=== PATIENT | female | born 1990 | race Caucasian/White ===

== ENCOUNTER → 2016-05-28 | Outpatient (CLI) | payer OTHER ==
[~2016-05-28] MED LIST: ABILIFY2 MG PO; AMBIEN10 MG PO; AMBIEN5 MG PO; AMOXICILLIN500 M2 PO; AMOXICILLIN500 MG PO; ATARAX25 MG PO; ATIVAN1 MG PO; BACTRIM DS 8001 TA1 PO; BENADRYL25 MG PO; BUSPAR5 MG PO; CIPRO250 MG PO; CLARITIN10 MG PO; CLONAZEPAM0.5 MG PO; COLACE-T100 MG PO; DICLEGIS DR 101 EACH PO; HYDROCODONE BIT1 T11 PO; HYDROXYZINE PAM50 MG PO; IRON CHELATED325 MG PO; KEFLEX500 MG PO; LABETALOL100 MG PO; LATUDA60 MG PO; LOMOTIL 0.025 M1 TA1 PO; MACROBID100 M1 PO; MEDROL DOSEPAK4 MG PO; METHERGINE0.2 MG PO; MOTRIN800 MG PO; Motrin,Rufen800 MG PO; NAPROSYN500 MG PO; NORTRIPTYLINE H50 M1 PO; NUED1CAP PO; NYSTATIN CREAM15 GM T; PERCOCET 325 MG1 TA2 PO; PHENERGAN W/ DE30 ML PO; PHENERGAN W/DM120 ML PO; PNV-SELECT1 TAB PO; PREDNICOT10 MG PO; PREDNICOT20 MG PO; PRENATAL1 TA1 PO; PRENATAL1 TA3 PO; PROAIR HFA0.09 MG/AC INH; PROAIR HFA8.5 GM IH; PROTONIX40 MG PO; PYRIDIUM200 MG PO; RISPERDAL0.25 MG PO; ROBITUSSIN COU118 M1 PO; SEPTRA DS 800 M1 TAB PO; TOPAMAX25 M1 PO; TOPICORT0.25% TP; TRAMADOL HCL50 MG PO; TRIMOX500 MG PO; TYLENOL325 M1 PO; VIBRAMYCIN100 MG PO; VICO10300 PO; VISTARIL25 M1 PO; ZITHROMAX Z PA250 MG PO; ZITHROMAX250 MG PO; ZOFRAN ODT4 MG PO; ZOFRAN ODT4 MG SL; ZOLOFT25 MG PO; ZOLPIDEM10 M1 PO
== END | disposition home or self-care (01) ==
LOC: LAB 16:57
DX: R53.83 Other fatigue (principal)

== ENCOUNTER 2016-06-09 11:35 | Emergency (ER) | payer OTHER ==
[~2016-06-09] VITALS: Ht 165.1 cm; Wt 90.7 kg
[2016-06-09 13:08] LABS: BILIRUBIN NEGATIVE (NEGATIVE); BLOOD TRACE-LYSED (NEGATIVE); COLOR YELLOW (YELLOW); GLUCOSE NEGATIVE (NEGATIVE); KETONE NEGATIVE (NEGATIVE); LEUKO ESTERASE TRACE (NEGATIVE); NITRITE NEGATIVE (NEGATIVE); PROTEIN TRACE (NEGATIVE); UROBILINOGEN 0.2 E.U./dl (0.2-1.0)
[2016-06-09 13:17] LABS: BACTERIA TRACE; CLARITY CLOUDY (CLEAR)
[2016-06-09 13:18] LABS: TRIP PHOS CRYSTALS 1+; WBC 16-20 wbc/hpf (0-5)
[2016-06-09 13:19] LABS: URINE REFLEX COMMENT YES (NO)
[2016-06-09] MEDS ORDERED: PYRIDIUM100 MG PO (13:29)
[2016-06-09] MEDS ORDERED: BACTRIM DS 8001 TA1 PO (13:29)
== END 2016-06-09 13:42 | disposition home or self-care (01) ==
LOC: ED 11:35
PROVIDERS: Nurse Practitioner Family
DX: N30.01 Acute cystitis with hematuria (principal); F17.200 Nicotine dependence, unspecified, uncomplicated; Z90.49 Acquired absence of other specified parts of digestive tract; Z79.899 Other long term (current) drug therapy; Z88.8 Allergy status to other drugs, medicaments and biological substances

== ENCOUNTER → 2016-11-06 | Outpatient (CLI) | payer OTHER ==
[~2016-11-06] MED LIST changes: +PYRIDIUM100 MG PO
[2016-11-06 17:53] LABS: BASO # 0.1 10*3/uL (0.0-0.1); EOS # 0.6 10*3/uL (0.0-0.4); EOS % 4.4 % (1.0-4.0); HEMATOCRIT 37.8 % (37.0-47.0); HEMOGLOBIN 12.6 g/dl (12.0-16.0); LYMPH # 3.2 10*3/uL (1.3-4.4); MEAN CELL VOLUME 81.5 fl (81.0-99.0); MEAN CORPUSCULAR HGB 27.2 pg (27.0-31.0); MEAN CORPUSCULAR HGB CONC 33.3 g/dl (33.0-37.0); MEAN PLATELET VOLUME 10.2 fl (9.6-12.3); MONO # 1.1 10*3/uL (0.1-1.0); MONO % 8.8 % (3.0-9.0); NEUT # 7.4 10*3/uL (2.3-7.9); NEUT % 59.5 % (47.0-73.0); NUCLEATED RED BLOOD CELL 0.2 % (0.0-0.0); PLATELET COUNT AUTOMATED 339 10*3/uL (130-400); RED BLOOD COUNT 4.64 10*6/uL (4.10-5.10); RED CELL DISTRI WIDTH 14.7 % (0-14.5); WHITE BLOOD COUNT 12.4 10*3/uL (4.8-10.8)
[2016-11-06 18:07] LABS: ALBUMIN 3.5 gm/dl (3.1-4.5); ALKALINE PHOSPHATASE 94 U/L (45-117); BUN 7 mg/dl (7-24); CHLORIDE 106 mmol/L (98-107); CREATININE 0.65 mg/dL (0.55-1.02); POTASSIUM 3.7 mmol/L (3.5-5.1); SGOT/AST 11 IU/L (3-35); SGPT/ALT 14 U/L (12-78); SODIUM 140 mmol/L (136-145); TOTAL PROTEIN 7.5 gm/dL (6.4-8.2)
[2016-11-07 08:30] LABS: THYROID STIM HORMONE (HS) 0.814 uIU/ml (0.358-4.75)
[2016-11-07 08:43] LABS: B-hCG (QUALITATIVE) BORDERLINE (NEGATIVE)
== END | disposition home or self-care (01) ==
LOC: LAB 17:29
PROVIDERS: Nurse Practitioner Women's Health
DX: F31.81 Bipolar II disorder (principal)

== ENCOUNTER 2016-12-31 13:34 | Emergency (ER) | payer OTHER ==
[~2016-12-31] VITALS: Ht 165.1 cm; Wt 81.6 kg
[2016-12-31 14:10] LABS: BASO # 0.1 10*3/uL (0.0-0.1); BASO % 0.6 % (0.0-1.0); EOS # 0.4 10*3/uL (0.0-0.4); EOS % 3.2 % (1.0-4.0); HEMOGLOBIN 13.8 g/dl (12.0-16.0); LYMPH # 2.6 10*3/uL (1.3-4.4); LYMPH % 23.3 % (27.0-41.0); MEAN CELL VOLUME 80.1 fl (81.0-99.0); MEAN CORPUSCULAR HGB CONC 33.7 g/dl (33.0-37.0); MEAN PLATELET VOLUME 10.2 fl (9.6-12.3); MONO # 0.8 10*3/uL (0.1-1.0); MONO % 6.8 % (3.0-9.0); NEUT # 7.3 10*3/uL (2.3-7.9); NEUT % 65.7 % (47.0-73.0); PLATELET COUNT AUTOMATED 317 10*3/uL (130-400); RED BLOOD COUNT 5.12 10*6/uL (4.10-5.10); RED CELL DISTRI WIDTH 13.6 % (0-14.5); WHITE BLOOD COUNT 11.1 10*3/uL (4.8-10.8)
[2016-12-31 14:20] LABS: BILIRUBIN NEGATIVE (NEGATIVE); BLOOD 3+ (NEGATIVE); CLARITY SL CLOUDY (CLEAR); COLOR YELLOW (YELLOW); GLUCOSE NEGATIVE (NEGATIVE); KETONE NEGATIVE (NEGATIVE); LEUKO ESTERASE TRACE (NEGATIVE); NITRITE NEGATIVE (NEGATIVE); PH 6.5 (5.0-9.0); UROBILINOGEN 0.2 E.U./dl (0.2-1.0)
[2016-12-31 14:22] LABS: BUN 5 mg/dl (7-24); CHLORIDE 103 mmol/L (98-107); CREATININE 0.54 mg/dL (0.55-1.02); SODIUM 138 mmol/L (136-145)
[2016-12-31 14:27] LABS: BACTERIA 2+; EPITHELIAL CELLS 31-40
[2016-12-31 14:29] LABS: RBC 31-40 rbc/hpf (0-2)
[2016-12-31] MEDS ORDERED: OMNICEF300 MG PO (14:34)
== END 2016-12-31 14:43 | disposition home or self-care (01) ==
LOC: ED 13:34
PROVIDERS: Emergency Medicine
DX: O23.41 Unspecified infection of urinary tract in pregnancy, first trimester (principal); O99.331 Smoking (tobacco) complicating pregnancy, first trimester; Z3A.12 12 weeks gestation of pregnancy; Z88.5 Allergy status to narcotic agent; Z88.8 Allergy status to other drugs, medicaments and biological substances; Z79.899 Other long term (current) drug therapy

== ENCOUNTER 2017-08-14 14:19 | Emergency (ER) | payer OTHER ==
[~2017-08-14] VITALS: Ht 165.1 cm; Wt 83.0 kg
[~2017-08-14 14:19] MED LIST changes: +OMNICEF300 MG PO
[2017-08-14] MEDS ORDERED: IBUPROFEN600 MG PO (16:22)
== END 2017-08-14 16:31 | disposition home or self-care (01) ==
LOC: ED 14:19
DX: I80.8 Phlebitis and thrombophlebitis of other sites (principal); M25.531 Pain in right wrist; Z90.49 Acquired absence of other specified parts of digestive tract; Z88.6 Allergy status to analgesic agent; Z88.8 Allergy status to other drugs, medicaments and biological substances

== ENCOUNTER → 2017-09-25 | Outpatient (CLI) | payer OTHER ==
[~2017-09-25] MED LIST changes: +IBUPROFEN600 MG PO
[2017-09-25 11:54] LABS: BASO # 0.1 10*3/uL (0.0-0.1); BASO % 1.1 % (0.0-1.0); EOS # 0.4 10*3/uL (0.0-0.4); EOS % 4.2 % (1.0-4.0); HEMATOCRIT 39.3 % (37.0-47.0); HEMOGLOBIN 12.2 g/dl (12.0-16.0); LYMPH # 2.9 10*3/uL (1.3-4.4); LYMPH % 33.6 % (27.0-41.0); MEAN CORPUSCULAR HGB 25.2 pg (27.0-31.0); MEAN PLATELET VOLUME 10.6 fl (9.6-12.3); MONO # 0.7 10*3/uL (0.1-1.0); MONO % 8.7 % (3.0-9.0); NEUT # 4.5 10*3/uL (2.3-7.9); NEUT % 52.2 % (47.0-73.0); PLATELET COUNT AUTOMATED 310 10*3/uL (130-400); RED BLOOD COUNT 4.85 10*6/uL (4.10-5.10); RED CELL DISTRI WIDTH 14.4 % (0-14.5); WHITE BLOOD COUNT 8.6 10*3/uL (4.8-10.8)
[2017-09-25 12:21] LABS: BUN 9 mg/dl (7-24); CHLORIDE 108 mmol/L (98-107); CREATININE 0.76 mg/dL (0.55-1.02); POTASSIUM 4.1 mmol/L (3.5-5.1); SODIUM 140 mmol/L (136-145)
== END | disposition home or self-care (01) ==
LOC: LAB 11:34
DX: Z01.818 Encounter for other preprocedural examination (principal); F17.200 Nicotine dependence, unspecified, uncomplicated; F12.10 Cannabis abuse, uncomplicated

== ENCOUNTER 2017-10-16 12:24 | Inpatient (IN) | payer OTHER ==
[~2017-10-16] VITALS: Ht 165.1 cm; Wt 81.2 kg
--- NOTE | ~2017-10-16 | EKG ---
[place], [place] ELECTROCARDIOGRAM REPORT NAME: TING RAMIREZ UNIT #: [id number] ROOM: 404 DOCTOR: MARELY DRAFT REPORT BIRTHDATE: [birth year] [facility] Test Date: 2017-10-18 Test Time: 13:52:58 Pat Name: TING RAMIREZ Department: Room: [facility] 1 Gender: F [employer] Drawer: SS RESP : 1990 Requested By: APRYL CHRISTIE Order Number: [id number] Reading MD: Measurements Intervals [place] Rate: 68 P: 54 VT: 154 QRS: 82 QRSD: 92 T: 57 QT: 404 QTc: 430 Interpretive Statements Sinus rhythm Baseline wander in lead(s) I,III,aVL,V1,V2,V4,V5,V6 Compared to ECG 10/16/2017 15:11:49 Sinus arrhythmia no longer present CM:EKGRPT:ELECTROCARDIOGRAM REPORT 1352 1055 APRYL STEEN DRAFT REPORT APRYL CHRISTIE DO
--- NOTE | ~2017-10-16 | EKG ---
[place], [place] ELECTROCARDIOGRAM REPORT NAME: TING RAMIREZ UNIT #: [id number] ROOM: 404 DOCTOR: MARELY DRAFT REPORT BIRTHDATE: [birth year] [facility] Test Date: 2017-10-16 Test Time: 15:11:49 Pat Name: TING RAMIREZ Department: Room: 404 Gender: F Lead Case Manager: Macy Lainez : 1990 Requested By: ERASMO IBARRA Order Number: [id number] Reading MD: Jose Rausch MD Measurements Intervals [place] Rate: 59 P: 45 ME: 160 QRS: 59 QRSD: 89 T: 30 QT: 393 QTc: 390 Interpretive Statements Sinus rhythm with sinus arrhythmia Electronically Signed On 10-16-2017 14:13:57 PDT by Jose Rausch MD CM:EKGRPT:ELECTROCARDIOGRAM REPORT 1511 [id number] ERASMO STEEN DRAFT REPORT ERASMO IBARRA DO
[2017-10-16 12:28] VITALS: BP 132/70
[2017-10-16 13:09] LABS: BILIRUBIN NEGATIVE (NEGATIVE); BLOOD 3+ (NEGATIVE); CLARITY SL CLOUDY (CLEAR); COLOR YELLOW (YELLOW); GLUCOSE NEGATIVE (NEGATIVE); KETONE NEGATIVE (NEGATIVE); LEUKO ESTERASE NEGATIVE (NEGATIVE); NITRITE NEGATIVE (NEGATIVE); SPECIFIC GRAVITY <= 1.005 (1.005-1.030)
[2017-10-16 13:10] LABS: BASO % 0.5 % (0.0-1.0); EOS # 0.3 10*3/uL (0.0-0.4); EOS % 4.1 % (1.0-4.0); HEMATOCRIT 40.1 % (37.0-47.0); HEMOGLOBIN 12.5 g/dl (12.0-16.0); LYMPH # 2.2 10*3/uL (1.3-4.4); LYMPH % 27.1 % (27.0-41.0); MEAN CELL VOLUME 79.4 fl (81.0-99.0); MEAN CORPUSCULAR HGB 24.8 pg (27.0-31.0); MEAN CORPUSCULAR HGB CONC 31.2 g/dl (33.0-37.0); MEAN PLATELET VOLUME 10.9 fl (9.6-12.3); MONO # 0.8 10*3/uL (0.1-1.0); MONO % 9.9 % (3.0-9.0); NEUT # 4.8 10*3/uL (2.3-7.9); PLATELET COUNT AUTOMATED 322 10*3/uL (130-400); RED BLOOD COUNT 5.05 10*6/uL (4.10-5.10); RED CELL DISTRI WIDTH 14.6 % (0-14.5); WHITE BLOOD COUNT 8.3 10*3/uL (4.8-10.8)
[2017-10-16 13:24] LABS: ALBUMIN 3.6 gm/dl (3.1-4.5); ALKALINE PHOSPHATASE 224 U/L (45-117); BUN 5 mg/dl (7-24); CHLORIDE 107 mmol/L (98-107); CREATININE 0.66 mg/dL (0.55-1.02); POTASSIUM 3.6 mmol/L (3.5-5.1); SGOT/AST 578 IU/L (3-35); SGPT/ALT 359 U/L (12-78); SODIUM 141 mmol/L (136-145); TOTAL PROTEIN 7.8 gm/dL (6.4-8.2)
[2017-10-16 13:27] LABS: BETA-HCG, QUANT < 1.0 mIU/mL (1-3)
[2017-10-16 13:33] LABS: BACTERIA 1+
[2017-10-16 15:50] VITALS: BP 125/74
[2017-10-16 15:50] LABS: ACT PARTIAL THROMBO TIME 24.8 SECONDS (20.8-31.5)
[2017-10-16] MEDS ORDERED: PERCOCET 5-3251 EACH PO (15:56)
[2017-10-16] MEDS ORDERED: ZANAFLEX4 M2 PO (15:56)
[2017-10-16] MEDS ORDERED: LEXAPRO10 MG PO (15:57)
[2017-10-16] MEDS ORDERED: ADDERALL 30 MG30 MG PO (15:58)
[2017-10-16 20:00] VITALS: BP 120/91
[2017-10-17] VITALS: BP 115/58
[2017-10-17 07:19] LABS: BASO # 0.1 10*3/uL (0.0-0.1); BASO % 0.6 % (0.0-1.0); EOS # 0.6 10*3/uL (0.0-0.4); EOS % 6.7 % (1.0-4.0); LYMPH # 2.1 10*3/uL (1.3-4.4); LYMPH % 25.3 % (27.0-41.0); MEAN CELL VOLUME 79.4 fl (81.0-99.0); MEAN CORPUSCULAR HGB 24.6 pg (27.0-31.0); MEAN PLATELET VOLUME 11.1 fl (9.6-12.3); MONO # 0.8 10*3/uL (0.1-1.0); MONO % 9.1 % (3.0-9.0); NEUT # 4.9 10*3/uL (2.3-7.9); NEUT % 58.2 % (47.0-73.0); PLATELET COUNT AUTOMATED 266 10*3/uL (130-400); RED BLOOD COUNT 4.23 10*6/uL (4.10-5.10); RED CELL DISTRI WIDTH 14.4 % (0-14.5); WHITE BLOOD COUNT 8.5 10*3/uL (4.8-10.8)
[2017-10-17 07:22] LABS: HEMOGLOBIN 10.4 g/dl (12.0-16.0)
[2017-10-17 07:23] LABS: HEMATOCRIT 33.6 % (37.0-47.0)
[2017-10-17 07:35] LABS: ALBUMIN 2.7 gm/dl (3.1-4.5); BUN 6 mg/dl (7-24); CHLORIDE 110 mmol/L (98-107); CHOLESTEROL 141 mg/dL (<200); CREATININE 0.59 mg/dL (0.55-1.02); PHOSPHOROUS 3.6 mg/dL (2.5-4.9); POTASSIUM 3.9 mmol/L (3.5-5.1); SGOT/AST 121 IU/L (3-35); SGPT/ALT 208 U/L (12-78); SODIUM 143 mmol/L (136-145); TOTAL PROTEIN 6.2 gm/dL (6.4-8.2); TRIGLYCERIDES 46 mg/dl (<150); VLDL CHOLESTEROL 9 mg/dL (6-40)
[2017-10-17 07:42] LABS: ALKALINE PHOSPHATASE 143 U/L (45-117); FREE T4 0.83 ng/dl (0.76-1.46); HDL CHOLESTEROL 41 mg/dl (40-60); LDL CHOLESTEROL 91 mg/dL (9-159); THYROID STIM HORMONE (HS) 0.543 uIU/ml (0.358-4.75)
[2017-10-17 10:06] LABS: HEPATITIS B SURFACE AG Negative (Negative); HEPATITIS C VIRUS ANTIBODY 0.1 s/co (0.0-0.9)
[2017-10-17 12:00] VITALS: BP 137/94
[2017-10-17 16:00] VITALS: BP 139/69
[2017-10-17 20:00] VITALS: BP 134/68
[2017-10-18] VITALS (7 sets, daily range): BP systolic 111–140; BP diastolic 60–84
[2017-10-18 06:39] LABS: BASO # 0.1 10*3/uL (0.0-0.1); BASO % 0.7 % (0.0-1.0); EOS # 0.7 10*3/uL (0.0-0.4); EOS % 7.8 % (1.0-4.0); HEMATOCRIT 37.4 % (37.0-47.0); HEMOGLOBIN 11.6 g/dl (12.0-16.0); LYMPH # 2.2 10*3/uL (1.3-4.4); LYMPH % 26.1 % (27.0-41.0); MEAN CELL VOLUME 79.1 fl (81.0-99.0); MEAN CORPUSCULAR HGB 24.5 pg (27.0-31.0); MEAN PLATELET VOLUME 10.7 fl (9.6-12.3); MONO # 0.8 10*3/uL (0.1-1.0); MONO % 9.5 % (3.0-9.0); NEUT # 4.8 10*3/uL (2.3-7.9); NEUT % 55.7 % (47.0-73.0); PLATELET COUNT AUTOMATED 313 10*3/uL (130-400); RED BLOOD COUNT 4.73 10*6/uL (4.10-5.10); RED CELL DISTRI WIDTH 14.1 % (0-14.5); WHITE BLOOD COUNT 8.6 10*3/uL (4.8-10.8)
[2017-10-18 07:10] LABS: ALBUMIN 3.2 gm/dl (3.1-4.5); ALKALINE PHOSPHATASE 143 U/L (45-117); BUN 6 mg/dl (7-24); CHLORIDE 106 mmol/L (98-107); CREATININE 0.66 mg/dL (0.55-1.02); POTASSIUM 3.2 mmol/L (3.5-5.1); SGOT/AST 43 IU/L (3-35); SGPT/ALT 154 U/L (12-78); SODIUM 139 mmol/L (136-145); TOTAL PROTEIN 7.1 gm/dL (6.4-8.2)
[2017-10-19] VITALS: BP 140/75
[2017-10-19 06:10] LABS: BASO # 0.1 10*3/uL (0.0-0.1); BASO % 0.9 % (0.0-1.0); EOS # 0.6 10*3/uL (0.0-0.4); EOS % 8.2 % (1.0-4.0); HEMATOCRIT 33.1 % (37.0-47.0); HEMOGLOBIN 10.1 g/dl (12.0-16.0); LYMPH # 2.3 10*3/uL (1.3-4.4); LYMPH % 29.9 % (27.0-41.0); MEAN CELL VOLUME 80.5 fl (81.0-99.0); MEAN CORPUSCULAR HGB 24.6 pg (27.0-31.0); MEAN CORPUSCULAR HGB CONC 30.5 g/dl (33.0-37.0); MEAN PLATELET VOLUME 10.7 fl (9.6-12.3); MONO # 0.7 10*3/uL (0.1-1.0); MONO % 8.6 % (3.0-9.0); NEUT % 52.3 % (47.0-73.0); PLATELET COUNT AUTOMATED 276 10*3/uL (130-400); RED BLOOD COUNT 4.11 10*6/uL (4.10-5.10); RED CELL DISTRI WIDTH 14.3 % (0-14.5); WHITE BLOOD COUNT 7.6 10*3/uL (4.8-10.8)
[2017-10-19 06:27] LABS: ALBUMIN 2.6 gm/dl (3.1-4.5); ALKALINE PHOSPHATASE 113 U/L (45-117); BUN 8 mg/dl (7-24); CHLORIDE 110 mmol/L (98-107); CREATININE 0.65 mg/dL (0.55-1.02); SGOT/AST 20 IU/L (3-35); SGPT/ALT 93 U/L (12-78); SODIUM 141 mmol/L (136-145)
== END 2017-10-19 11:19 | disposition home or self-care (01) | DRG 312 ==
LOC: ED 12:24 → EDHOLD 14:40 → 4E 15:19
PROVIDERS: Emergency Medicine; Internal Medicine
DX: I95.1 Orthostatic hypotension (principal); F41.9 Anxiety disorder, unspecified; R74.0 Nonspecific elevation of levels of transaminase and lactic acid dehydrogenase [LDH]; F43.11 Post-traumatic stress disorder, acute; R31.9 Hematuria, unspecified; R79.89 Other specified abnormal findings of blood chemistry; Z72.0 Tobacco use; Z71.6 Tobacco abuse counseling; Z98.51 Tubal ligation status; Z88.8 Allergy status to other drugs, medicaments and biological substances; Z79.899 Other long term (current) drug therapy; Z87.440 Personal history of urinary (tract) infections; Z90.49 Acquired absence of other specified parts of digestive tract; Z83.3 Family history of diabetes mellitus

== ENCOUNTER 2017-11-28 13:20 | Emergency (ER) | payer OTHER ==
[~2017-11-28] VITALS: Ht 165.1 cm; Wt 81.6 kg
[~2017-11-28 13:20] MED LIST changes: +ADDERALL 30 MG30 MG PO; +LEXAPRO10 MG PO; +PERCOCET 5-3251 EACH PO; +ZANAFLEX4 M2 PO
[2017-11-28 13:36] LABS: BASO # 0.1 10*3/uL (0.0-0.1); BASO % 1.1 % (0.0-1.0); EOS # 0.2 10*3/uL (0.0-0.4); EOS % 2.1 % (1.0-4.0); HEMATOCRIT 33.5 % (37.0-47.0); HEMOGLOBIN 10.4 g/dl (12.0-16.0); LYMPH # 1.9 10*3/uL (1.3-4.4); LYMPH % 20.4 % (27.0-41.0); MEAN CELL VOLUME 73.5 fl (81.0-99.0); MEAN CORPUSCULAR HGB 22.8 pg (27.0-31.0); MEAN PLATELET VOLUME 9.4 fl (9.6-12.3); MONO # 0.8 10*3/uL (0.1-1.0); MONO % 8.5 % (3.0-9.0); NEUT # 6.4 10*3/uL (2.3-7.9); NEUT % 67.7 % (47.0-73.0); PLATELET COUNT AUTOMATED 534 10*3/uL (130-400); RED BLOOD COUNT 4.56 10*6/uL (4.10-5.10); RED CELL DISTRI WIDTH 14.1 % (0-14.5); WHITE BLOOD COUNT 9.4 10*3/uL (4.8-10.8)
[2017-11-28 13:51] LABS: BUN 6 mg/dl (7-24); CHLORIDE 104 mmol/L (98-107); CREATININE 0.68 mg/dL (0.55-1.02); POTASSIUM 3.4 mmol/L (3.5-5.1); SODIUM 140 mmol/L (136-145)
[2017-11-28 13:56] LABS: BETA-HCG, QUANT < 1.0 mIU/mL (1-3)
[2017-11-28 14:07] LABS: BILIRUBIN NEGATIVE (NEGATIVE); BLOOD 3+ (NEGATIVE); CLARITY SL CLOUDY (CLEAR); COLOR YELLOW (YELLOW); GLUCOSE NEGATIVE (NEGATIVE); KETONE NEGATIVE (NEGATIVE); LEUKO ESTERASE NEGATIVE (NEGATIVE); NITRITE NEGATIVE (NEGATIVE); PH 6.5 (5.0-9.0); SPECIFIC GRAVITY >= 1.030 (1.005-1.030)
[2017-11-28 14:28] LABS: BACTERIA 2+; RBC TNTC rbc/hpf (0-2)
[2017-11-28 14:29] LABS: MUCOUS TRACE
[2017-11-28] MEDS ORDERED: LEVAQUIN250 M1 PO (14:56)
[2017-11-28] MEDS ORDERED: DIFLUCAN150 MG PO (14:56)
== END 2017-11-28 15:01 | disposition home or self-care (01) ==
LOC: ED 13:20
PROVIDERS: Emergency Medicine
DX: N39.0 Urinary tract infection, site not specified (principal); F41.9 Anxiety disorder, unspecified; Z88.5 Allergy status to narcotic agent; Z88.8 Allergy status to other drugs, medicaments and biological substances; Z79.899 Other long term (current) drug therapy; Z90.49 Acquired absence of other specified parts of digestive tract; Z98.51 Tubal ligation status

== ENCOUNTER 2018-12-08 19:30 | Emergency (ER) | payer OTHER ==
[~2018-12-08] VITALS: Ht 165.1 cm; Wt 79.4 kg
[~2018-12-08 19:30] MED LIST changes: +DIFLUCAN150 MG PO; +LEVAQUIN250 M1 PO
[2018-12-08] MEDS ORDERED: MEDROL DOSEPAK4 MG PO (19:54)
[2018-12-08] MEDS ORDERED: Motrin,Rufen800 MG PO (19:54)
[2018-12-08] MEDS ORDERED: CLINDAMYCIN HC300 MG PO (19:54)
== END 2018-12-08 20:35 | disposition home or self-care (01) ==
LOC: ED 19:30
DX: K04.7 Periapical abscess without sinus (principal); J40 Bronchitis, not specified as acute or chronic; F17.210 Nicotine dependence, cigarettes, uncomplicated; Z79.899 Other long term (current) drug therapy; Z88.0 Allergy status to penicillin; Z88.1 Allergy status to other antibiotic agents; Z88.8 Allergy status to other drugs, medicaments and biological substances

== ENCOUNTER 2019-03-08 11:21 | Emergency (ER) | payer OTHER ==
[~2019-03-08] VITALS: Ht 170.1 cm; Wt 59.0 kg
[~2019-03-08 11:21] MED LIST changes: +CLINDAMYCIN HC300 MG PO
[2019-03-08] MEDS ORDERED: CLINDAMYCIN HC300 MG PO (12:04)
[2019-03-08] MEDS ORDERED: TYLENOL325 M1 PO (12:04)
[2019-03-08] MEDS ORDERED: NAPROSYN500 MG PO (12:04)
== END 2019-03-08 12:28 | disposition home or self-care (01) ==
LOC: ED 11:21
DX: K02.9 Dental caries, unspecified (principal); R21 Rash and other nonspecific skin eruption; F17.210 Nicotine dependence, cigarettes, uncomplicated; Z79.899 Other long term (current) drug therapy; Z88.0 Allergy status to penicillin; Z88.1 Allergy status to other antibiotic agents; Z88.8 Allergy status to other drugs, medicaments and biological substances

== ENCOUNTER 2019-11-04 19:22 | Emergency (ER) | payer OTHER ==
[~2019-11-04] VITALS: Wt 85.3 kg
[2019-11-04 20:36] LABS: BACTERIA TRACE; BILIRUBIN NEGATIVE; BLOOD NEGATIVE (NEGATIVE); CLARITY CLEAR (CLEAR); COLOR YELLOW (YELLOW); GLUCOSE NEGATIVE; KETONE NEGATIVE; LEUKO ESTERASE NEGATIVE (NEGATIVE); NITRITE NEGATIVE (NEGATIVE); PH 5.5 (4.5-8.0); SPECIFIC GRAVITY < 1.005 (1.001-1.030); UROBILINOGEN 0.2 E.U./dl (0.0-1.0); WBC 0-2 wbc/hpf (0-5)
[2019-11-04] MEDS ORDERED: TESSALON PERLE100 M1 PO (21:32)
[2019-11-04] MEDS ORDERED: PROVENTIL HFA6.7 GM INH (21:32)
== END 2019-11-04 22:51 | disposition home or self-care (01) ==
LOC: ED 19:22
PROVIDERS: Physician Assistant
DX: J40 Bronchitis, not specified as acute or chronic (principal); F17.200 Nicotine dependence, unspecified, uncomplicated; Z88.0 Allergy status to penicillin; Z88.8 Allergy status to other drugs, medicaments and biological substances; Z79.899 Other long term (current) drug therapy; Z90.49 Acquired absence of other specified parts of digestive tract

== ENCOUNTER 2021-07-24 19:54 | Emergency (ER) | payer OTHER ==
[~2021-07-24] VITALS: Ht 165.1 cm; Wt 88.5 kg
[~2021-07-24 19:54] MED LIST changes: +PROVENTIL HFA6.7 GM INH; +TESSALON PERLE100 M1 PO
[2021-07-24] MEDS ORDERED: MIRTAZAPINE30 M2 PO (20:10)
[2021-07-24] MEDS ORDERED: Motrin,Rufen800 MG PO (22:14)
== END 2021-07-24 22:31 | disposition home or self-care (01) ==
LOC: ED 19:54
DX: S92.352A Displaced fracture of fifth metatarsal bone, left foot, initial encounter for closed fracture (principal); F17.210 Nicotine dependence, cigarettes, uncomplicated; F12.90 Cannabis use, unspecified, uncomplicated; Z90.49 Acquired absence of other specified parts of digestive tract; Z98.51 Tubal ligation status; Z79.899 Other long term (current) drug therapy; Z88.0 Allergy status to penicillin; Z88.1 Allergy status to other antibiotic agents; Z88.8 Allergy status to other drugs, medicaments and biological substances; X50.1XXA Overexertion from prolonged static or awkward postures, initial encounter; Y93.01 Activity, walking, marching and hiking; Y92.89 Other specified places as the place of occurrence of the external cause; Y99.9 Unspecified external cause status

== ENCOUNTER 2021-12-19 08:50 | Emergency (ER) | payer OTHER ==
[~2021-12-19] VITALS: Wt 90.7 kg
[~2021-12-19 08:50] MED LIST changes: +MIRTAZAPINE30 M2 PO
[2021-12-19] MEDS ORDERED: Motrin,Rufen800 MG PO (10:31)
[2021-12-19] MEDS ORDERED: ACETAMINOPHEN650 M5 PO (10:31)
== END 2021-12-19 10:34 | disposition home or self-care (01) ==
LOC: ED 08:50
DX: B34.9 Viral infection, unspecified (principal); Z20.822 Contact with and (suspected) exposure to COVID-19; R19.7 Diarrhea, unspecified; F17.210 Nicotine dependence, cigarettes, uncomplicated; Z88.0 Allergy status to penicillin; Z88.1 Allergy status to other antibiotic agents; Z88.8 Allergy status to other drugs, medicaments and biological substances; Z79.899 Other long term (current) drug therapy; Z90.49 Acquired absence of other specified parts of digestive tract; Z98.890 Other specified postprocedural states

== ENCOUNTER 2022-03-07 15:32 | Emergency (ER) | payer OTHER ==
[~2022-03-07] VITALS: Ht 165.1 cm; Wt 90.7 kg
[~2022-03-07 15:32] MED LIST changes: +ACETAMINOPHEN650 M5 PO
[2022-03-07] MEDS ORDERED: SEPTDS PO (16:43)
[2022-03-07] MEDS ORDERED: PREDNISONE20 M1 PO (16:43)
== END 2022-03-07 16:52 | disposition home or self-care (01) ==
LOC: ED 15:32
DX: R21 Rash and other nonspecific skin eruption (principal); Z88.0 Allergy status to penicillin; Z88.1 Allergy status to other antibiotic agents; Z88.8 Allergy status to other drugs, medicaments and biological substances; Z98.51 Tubal ligation status; Z90.49 Acquired absence of other specified parts of digestive tract; F17.210 Nicotine dependence, cigarettes, uncomplicated

== ENCOUNTER 2022-04-23 08:15 | Emergency (ER) | payer OTHER ==
[~2022-04-23] VITALS: Wt 81.6 kg
[~2022-04-23 08:15] MED LIST changes: +PREDNISONE20 M1 PO; +SEPTDS PO
[2022-04-23] MEDS ORDERED: PREDNISONE50 MG PO (10:12)
== END 2022-04-23 10:18 | disposition home or self-care (01) ==
LOC: ED 08:15
DX: B34.9 Viral infection, unspecified (principal); F31.9 Bipolar disorder, unspecified; Z88.0 Allergy status to penicillin; Z88.1 Allergy status to other antibiotic agents; Z88.8 Allergy status to other drugs, medicaments and biological substances; Z90.49 Acquired absence of other specified parts of digestive tract; Z98.890 Other specified postprocedural states; F17.210 Nicotine dependence, cigarettes, uncomplicated; F12.90 Cannabis use, unspecified, uncomplicated; Z20.822 Contact with and (suspected) exposure to COVID-19

== ENCOUNTER → 2022-12-04 | Outpatient (CLI) | payer OTHER ==
[~2022-12-04] MED LIST changes: +PREDNISONE50 MG PO
[2022-12-04 11:37] LABS: BASO # 0.2 10*3/uL (0.0-0.1); BASO % 1.5 % (0.0-1.0); EOS # 0.4 10*3/uL (0.0-0.4); EOS % 4.3 % (1.0-4.0); HEMATOCRIT 42.7 % (37.0-47.0); LYMPH # 2.8 10*3/uL (1.3-4.4); LYMPH % 27.5 % (27.0-41.0); MEAN CELL VOLUME 84.4 fl (81.0-99.0); MEAN CORPUSCULAR HGB 29.1 pg (27.0-31.0); MEAN CORPUSCULAR HGB CONC 34.4 g/dl (33.0-37.0); MEAN PLATELET VOLUME 9.9 fl (9.6-12.3); MONO # 0.8 10*3/uL (0.1-1.0); MONO % 7.8 % (3.0-9.0); NEUT # 5.9 10*3/uL (2.3-7.9); NEUT % 58.6 % (47.0-73.0); PLATELET COUNT AUTOMATED 358 10*3/uL (130-400); RED BLOOD COUNT 5.06 10*6/uL (4.10-5.10); RED CELL DISTRI WIDTH 12.8 % (0-14.5); RETICULOCYTE % 1.97 % (0.50-2.50); WHITE BLOOD COUNT 10.1 10*3/uL (4.8-10.8)
[2022-12-04 11:44] LABS: BILIRUBIN Negative (Negative); BLOOD Negative (Negative); CLARITY Cloudy (Clear); COLOR Yellow (Yellow); GLUCOSE Negative (Negative); KETONE Trace (Negative); LEUKO ESTERASE Negative (Negative); NITRITE Negative (Negative); PH 6.5 (4.5-8.0); SPECIFIC GRAVITY 1.025 (1.001-1.030)
[2022-12-04 12:20] LABS: BACTERIA TRACE; EPITHELIAL CELLS 21-30
[2022-12-04 12:48] LABS: ALKALINE PHOSPHATASE 90 U/L (46-116); BUN 6 mg/dl (9-23); CHLORIDE 106 mmol/L (98-107); CHOLESTEROL 163 mg/dL (<200); GAMMA GLUTAMYL TRANSPEPTIDASE 15 U/L (0-73); LDL CHOLESTEROL 92 mg/dL (9-159); POTASSIUM 4.2 mmol/L (3.4-5.1); THYROXINE (T4) TOTAL 7.6 ug/dl (4.5-10.9); TOTAL PROTEIN 7.2 gm/dL (6.0-8.0); TRIGLYCERIDES 88 mg/dl (<150); VITAMIN D, 25-HYDROXY 34.5 ng/mL (30-100)
[2022-12-04 12:56] LABS: SGPT/ALT < 7 U/L (10-49)
== END | disposition home or self-care (01) ==
LOC: LAB 11:13
PROVIDERS: ATTEND Family Medicine
DX: E78.5 Hyperlipidemia, unspecified (principal); R79.89 Other specified abnormal findings of blood chemistry; R53.83 Other fatigue; E55.9 Vitamin D deficiency, unspecified

== ENCOUNTER 2023-01-13 12:00 | Emergency (ER) | payer OTHER ==
[~2023-01-13] VITALS: Wt 83.9 kg
[2023-01-13] MEDS ORDERED: Motrin,Rufen800 MG PO (14:51)
[2023-01-13] MEDS ORDERED: ONDANSETRON4 MG SL (14:51)
== END 2023-01-13 15:09 | disposition home or self-care (01) ==
LOC: ED 12:00
DX: B34.9 Viral infection, unspecified (principal); R11.0 Nausea; F31.9 Bipolar disorder, unspecified; F90.9 Attention-deficit hyperactivity disorder, unspecified type; Z88.0 Allergy status to penicillin; Z88.1 Allergy status to other antibiotic agents; Z88.8 Allergy status to other drugs, medicaments and biological substances; Z90.49 Acquired absence of other specified parts of digestive tract; Z98.890 Other specified postprocedural states; Z98.51 Tubal ligation status; F17.210 Nicotine dependence, cigarettes, uncomplicated; F12.90 Cannabis use, unspecified, uncomplicated; Z20.822 Contact with and (suspected) exposure to COVID-19

== ENCOUNTER 2023-09-11 10:42 | Emergency (ER) | payer OTHER ==
[~2023-09-11] VITALS: Ht 165.1 cm
[~2023-09-11 10:42] MED LIST changes: +ONDANSETRON4 MG SL
[2023-09-11] MEDS ORDERED: CAPLYTA42 MG PO (10:53)
[2023-09-11] MEDS ORDERED: MINIPRESS1 M1 PO (10:53)
[2023-09-11] MEDS ORDERED: CLINDAMYCIN HCL 300 MG CAPSULE PO ONE (11:00)
[2023-09-11] MEDS ORDERED: predniSONE 20 MG TAB PO ONE (11:00)
[2023-09-11] MEDS ORDERED: IBUPROFEN 800 MG TAB PO ONE (11:00)
[2023-09-11] MEDS ORDERED: IBU800 M2 PO (11:06)
[2023-09-11] MEDS ORDERED: CLINDAMYCIN HC300 MG PO (11:06)
[2023-09-11] MEDS ORDERED: PREDNISONE20 M1 PO (11:06)
== END 2023-09-11 11:12 | disposition home or self-care (01) ==
LOC: ED 10:42
DX: T78.49XA Other allergy, initial encounter (principal); L03.213 Periorbital cellulitis; F32.A Depression, unspecified; F41.9 Anxiety disorder, unspecified; F17.210 Nicotine dependence, cigarettes, uncomplicated; Z88.0 Allergy status to penicillin; Z88.8 Allergy status to other drugs, medicaments and biological substances; Z88.1 Allergy status to other antibiotic agents; Z79.899 Other long term (current) drug therapy; Z90.49 Acquired absence of other specified parts of digestive tract; Z98.890 Other specified postprocedural states; Z98.51 Tubal ligation status; Z90.710 Acquired absence of both cervix and uterus; X58.XXXA Exposure to other specified factors, initial encounter

== ENCOUNTER 2023-09-14 19:03 | Emergency (ER) | payer OTHER ==
[~2023-09-14] VITALS: Ht 165.1 cm; Wt 72.6 kg
[~2023-09-14 19:03] MED LIST changes: +CAPLYTA42 MG PO; +IBU800 M2 PO; +MINIPRESS1 M1 PO
[2023-09-14] MEDS ORDERED: methylPREDNISolone sod succ 125 MG VIAL IM ONE (20:20)
[2023-09-14] MEDS ORDERED: diphenhydrAMINE hydrochloride 25 MG CAP PO ONE (20:20)
[2023-09-14] MEDS ORDERED: [UNRECOGNIZED DRUG - OTHER] PO (20:33)
== END 2023-09-14 20:43 | disposition home or self-care (01) ==
LOC: ED 19:03
DX: L25.9 Unspecified contact dermatitis, unspecified cause (principal); F41.9 Anxiety disorder, unspecified; F31.9 Bipolar disorder, unspecified; F90.9 Attention-deficit hyperactivity disorder, unspecified type; F12.90 Cannabis use, unspecified, uncomplicated; F17.210 Nicotine dependence, cigarettes, uncomplicated; Z88.0 Allergy status to penicillin; Z88.1 Allergy status to other antibiotic agents; Z88.8 Allergy status to other drugs, medicaments and biological substances; Z90.49 Acquired absence of other specified parts of digestive tract; Z98.890 Other specified postprocedural states; Z90.710 Acquired absence of both cervix and uterus; Z98.51 Tubal ligation status

== ENCOUNTER → 2023-12-23 | Outpatient (CLI) | payer OTHER ==
[~2023-12-23] MED LIST changes: +[UNRECOGNIZED DRUG - OTHER] PO
[2023-12-23 11:57] LABS: BASO # 0.1 10*3/uL (0.0-0.1); EOS # 0.4 10*3/uL (0.0-0.4); EOS % 4.3 % (1.0-4.0); HEMATOCRIT 40.2 % (37.0-47.0); LYMPH # 2.8 10*3/uL (1.3-4.4); LYMPH % 32.3 % (27.0-41.0); MEAN CELL VOLUME 85.5 fl (81.0-99.0); MEAN CORPUSCULAR HGB 28.5 pg (27.0-31.0); MEAN CORPUSCULAR HGB CONC 33.3 g/dl (33.0-37.0); MEAN PLATELET VOLUME 9.7 fl (9.6-12.3); MONO # 0.8 10*3/uL (0.1-1.0); MONO % 9.1 % (3.0-9.0); NEUT # 4.6 10*3/uL (2.3-7.9); PLATELET COUNT AUTOMATED 331 10*3/uL (130-400); RED CELL DISTRI WIDTH 12.8 % (0-14.5); RETICULOCYTE % 2.28 % (0.50-2.50); WHITE BLOOD COUNT 8.8 10*3/uL (4.8-10.8)
[2023-12-23 12:01] LABS: BILIRUBIN Negative (Negative); BLOOD Negative (Negative); CLARITY Cloudy (Clear); COLOR Yellow (Yellow); GLUCOSE Negative (Negative); KETONE Negative (Negative); LEUKO ESTERASE Negative (Negative); NITRITE Negative (Negative); UROBILINOGEN 0.2 E.U./dl (0.0-1.0)
[2023-12-23 12:23] LABS: EPITHELIAL CELLS 21-30; WBC 0-2 wbc/hpf (0-5)
[2023-12-23 12:24] LABS: ALKALINE PHOSPHATASE 82 U/L (46-116); BACTERIA 2+; BUN 8 mg/dl (9-23); CHLORIDE 105 mmol/L (98-107); CHOLESTEROL 179 mg/dL (<200); GAMMA GLUTAMYL TRANSPEPTIDASE 18 U/L (0-73); LDL CHOLESTEROL 110 mg/dL (9-159); MUCOUS 1+; POTASSIUM 3.9 mmol/L (3.4-5.1); TOTAL PROTEIN 6.7 gm/dL (6.0-8.0); TRIGLYCERIDES 82 mg/dl (<150)
[2023-12-23 12:25] LABS: VITAMIN D, 25-HYDROXY 26.9 ng/mL (30-100)
[2023-12-23 12:26] LABS: SGPT/ALT < 7 U/L (5-49)
== END | disposition home or self-care (01) ==
LOC: LAB 10:50
PROVIDERS: ATTEND Family Medicine
DX: R06.02 Shortness of breath (principal); R79.89 Other specified abnormal findings of blood chemistry; R53.83 Other fatigue; E78.5 Hyperlipidemia, unspecified; E55.9 Vitamin D deficiency, unspecified

== ENCOUNTER → 2024-01-12 | Day surgery (SDC) | payer OTHER ==
[~2024-01-12] VITALS: Ht 165.1 cm; Wt 93.0 kg
[~2024-01-12] MED LIST changes: +ACETAMINOPHEN 100 ML IV ONE; +BUPIVACAINE 0.5% 30 ML IV ONE; +Bacitracin Zinc/Neomycin/Pol 0.9 GM PACKET T ONE; +Clindamycin Hydrochloride 150 MG CAP PO SCH; +DEXMEDETOMIDINE HCL 200 MCG/2 ML VIAL IV ONE; +Dexamethasone Sodium Phospha 4 MG/ML VIAL IV ONE; +Lactated Ringer's Solution 1,000 ML IV ONE; +Lidocaine Hydrochloride 2% 5 ML SDV IV ONE; +Midazolam Hydrochloride 2 MG/2 ML VIAL IV ONE; +Ondansetron Hydrochloride 4 MG/2 ML VIAL IV ONE; +PROPOFOL 200 MG/20 ML VIAL IV ONE; +SEVOFLURANE 250 ML BOT INH ONE; +SODIUM CHLORIDE 0.9% 100 ML IV ONE; +diphenhydrAMINE hydrochloride 50 MG/ML VIAL IV ONE
[2024-01-12 06:43] VITALS: BP 135/55
[2024-01-12 08:49] VITALS: BP 107/64
[2024-01-12 09:04] VITALS: BP 114/64
[2024-01-12 09:19] VITALS: BP 123/71
[2024-01-12 09:33] VITALS: BP 117/63
[2024-01-12 09:49] VITALS: BP 121/59
== END | disposition home or self-care (01) ==
LOC: SDC 01-08 08:00
PROVIDERS: ATTEND Dentist General Practice
DX: K02.9 Dental caries, unspecified (principal); F41.9 Anxiety disorder, unspecified; F31.9 Bipolar disorder, unspecified; F17.210 Nicotine dependence, cigarettes, uncomplicated; F10.90 Alcohol use, unspecified, uncomplicated; F12.90 Cannabis use, unspecified, uncomplicated; Z98.891 History of uterine scar from previous surgery; Z87.440 Personal history of urinary (tract) infections; Z90.49 Acquired absence of other specified parts of digestive tract; Z90.710 Acquired absence of both cervix and uterus; Z98.890 Other specified postprocedural states; Z88.0 Allergy status to penicillin; Z88.1 Allergy status to other antibiotic agents; Z88.8 Allergy status to other drugs, medicaments and biological substances; Z79.899 Other long term (current) drug therapy; Z83.3 Family history of diabetes mellitus

== ENCOUNTER 2024-09-22 16:18 | Emergency (ER) | payer OTHER ==
[~2024-09-22] VITALS: Wt 92.1 kg
[~2024-09-22 16:18] MED LIST changes: -ACETAMINOPHEN 100 ML IV ONE; -BUPIVACAINE 0.5% 30 ML IV ONE; -Bacitracin Zinc/Neomycin/Pol 0.9 GM PACKET T ONE; -Clindamycin Hydrochloride 150 MG CAP PO SCH; -DEXMEDETOMIDINE HCL 200 MCG/2 ML VIAL IV ONE; -Dexamethasone Sodium Phospha 4 MG/ML VIAL IV ONE; -Lactated Ringer's Solution 1,000 ML IV ONE; -Lidocaine Hydrochloride 2% 5 ML SDV IV ONE; -Midazolam Hydrochloride 2 MG/2 ML VIAL IV ONE; -Ondansetron Hydrochloride 4 MG/2 ML VIAL IV ONE; -PROPOFOL 200 MG/20 ML VIAL IV ONE; -SEVOFLURANE 250 ML BOT INH ONE; -SODIUM CHLORIDE 0.9% 100 ML IV ONE; -diphenhydrAMINE hydrochloride 50 MG/ML VIAL IV ONE
[2024-09-22] MEDS ORDERED: QUETIAPINE FUM200 M3 PO (16:42)
[2024-09-22] MEDS ORDERED: PAROXETINE HCL20 MG PO (16:42)
[2024-09-22] MEDS ORDERED: Ondansetron Hydrochloride 4 MG/2 ML VIAL IV ONE (16:50)
[2024-09-22] MEDS ORDERED: SODIUM CHLORIDE 0.9% 1,000 ML IV ONE (16:50)
[2024-09-22] MEDS ORDERED: IOHEXOL 300 MG/ML 100 ML VIAL IV ONE (16:55)
[2024-09-22 17:05] LABS: BASO # 0.1 10*3/uL (0.0-0.1); BASO % 0.9 % (0.0-1.0); EOS # 0.3 10*3/uL (0.0-0.4); EOS % 2.4 % (1.0-4.0); MEAN CELL VOLUME 84.0 fl (81.0-99.0); MEAN CORPUSCULAR HGB 28.4 pg (27.0-31.0); MEAN PLATELET VOLUME 9.9 fl (9.6-12.3); MONO # 0.9 10*3/uL (0.1-1.0); MONO % 7.8 % (3.0-9.0); NEUT # 7.7 10*3/uL (2.3-7.9); NEUT % 64.5 % (47.0-73.0); NUCLEATED RED BLOOD CELL 0.0 % (0.0-0.0); NUCLEATED RED BLOOD CELL 0.0 10*3/uL (0.0-0.0); PLATELET COUNT AUTOMATED 325 10*3/uL (130-400); RED CELL DISTRI WIDTH 12.9 % (0-14.5)
[2024-09-22 17:22] LABS: BILIRUBIN Negative (Negative); BLOOD Negative (Negative); CLARITY Clear (Clear); COLOR Yellow (Yellow); KETONE 1+ (Negative); LEUKO ESTERASE Trace (Negative); NITRITE Negative (Negative); PH 5.0 (4.5-8.0); SPECIFIC GRAVITY >= 1.030 (1.001-1.030); UROBILINOGEN 0.2 E.U./dl (0.0-1.0)
[2024-09-22 17:28] LABS: BUN 8 mg/dl (9-23); SGPT/ALT 8 U/L (5-49)
[2024-09-22 17:29] LABS: BACTERIA 1+; EPITHELIAL CELLS 21-30; MUCOUS 2+; RBC 0-2 rbc/hpf (0-2)
[2024-09-22] MEDS ORDERED: Ondansetron4 MG PO (20:48)
[2024-09-22] MEDS ORDERED: HYDROCODONE-AC1 EAC1 PO (20:48)
== END 2024-09-22 20:55 | disposition home or self-care (01) ==
LOC: ED 16:18
PROVIDERS: Nurse Practitioner Family
DX: N20.0 Calculus of kidney (principal); N39.0 Urinary tract infection, site not specified; F31.9 Bipolar disorder, unspecified; F17.210 Nicotine dependence, cigarettes, uncomplicated; Z88.0 Allergy status to penicillin; Z88.1 Allergy status to other antibiotic agents; Z88.8 Allergy status to other drugs, medicaments and biological substances; Z79.899 Other long term (current) drug therapy; Z90.49 Acquired absence of other specified parts of digestive tract; Z90.710 Acquired absence of both cervix and uterus

== ENCOUNTER → 2024-10-26 | Outpatient (CLI) | payer OTHER ==
[~2024-10-26] MED LIST changes: +HYDROCODONE-AC1 EAC1 PO; +Ondansetron4 MG PO; +PAROXETINE HCL20 MG PO; +QUETIAPINE FUM200 M3 PO
[2024-10-26 11:20] LABS: BASO # 0.1 10*3/uL (0.0-0.1); BASO % 0.8 % (0.0-1.0); EOS # 0.3 10*3/uL (0.0-0.4); EOS % 2.5 % (1.0-4.0); MEAN CELL VOLUME 84.6 fl (81.0-99.0); MEAN CORPUSCULAR HGB 28.2 pg (27.0-31.0); MEAN PLATELET VOLUME 10.6 fl (9.6-12.3); MONO # 0.9 10*3/uL (0.1-1.0); MONO % 8.8 % (3.0-9.0); NEUT # 6.2 10*3/uL (2.3-7.9); NEUT % 60.6 % (47.0-73.0); NUCLEATED RED BLOOD CELL 0.0 % (0.0-0.0); NUCLEATED RED BLOOD CELL 0.0 10*3/uL (0.0-0.0); PLATELET COUNT AUTOMATED 314 10*3/uL (130-400); RED CELL DISTRI WIDTH 13.0 % (0-14.5)
[2024-10-26 12:00] LABS: SGPT/ALT 8 U/L (5-49)
[2024-10-26 12:15] LABS: BUN < 5 mg/dl (9-23)
[2024-10-26 12:34] LABS: FREE T4 1.00 ng/dl (0.89-1.76)
== END | disposition home or self-care (01) ==
LOC: LAB 10:31
PROVIDERS: ATTEND Urology
DX: N20.0 Calculus of kidney (principal); R53.83 Other fatigue

== ENCOUNTER → 2024-10-28 | Outpatient (CLI) | payer OTHER ==
[2024-11-05 00:06] LABS: CALCIUM PHOSPHATE SATURATION 1.08 (0.50-2.00); CALCIUM, OXALATE SATURATION 6.88 (6.00-10.00); CALCIUM/CREATININE RATIO 158 (51-262); CREATININE/KG BODY WEIGHT 12.9 (8.7-20.3); CYSTINE,URINE,QUAL Neg (Negative); URIC ACID SATURATION 0.27 (<1.00); URINE CALCIUM 184 mg/24 hr (<200); URINE CITRATE 804 mg/24 hr (>550); URINE CREATININE 1161 mg/24 hr (Not Applic.); URINE MAGNESIUM 45 mg/24 hr (30-120); URINE OXALATE 22 mg/24 hr (20-40); URINE PH 24 HR 6.542 (5.800-6.200); URINE POTASSIUM 26 (20-100); URINE SODIUM 121 (50-150); URINE UREA NITROGEN 3.10 g/24 hr (6.00-14.00); URINE URIC ACID 607 mg/24 hr (<750); URINE VOLUME PRESERVED 1500 mL/24 hr (500-4000)
== END | disposition home or self-care (01) ==
LOC: LAB 11:41
PROVIDERS: ATTEND Urology
DX: N20.0 Calculus of kidney (principal); R53.83 Other fatigue

== ENCOUNTER → 2024-12-09 | Outpatient (CLI) | payer OTHER ==
[2024-12-09 12:56] LABS: BASO # 0.1 10*3/uL (0.0-0.1); BASO % 1.3 % (0.0-1.0); BILIRUBIN Negative (Negative); BLOOD Negative (Negative); CLARITY Clear (Clear); COLOR Yellow (Yellow); EOS # 0.3 10*3/uL (0.0-0.4); EOS % 3.2 % (1.0-4.0); KETONE Negative (Negative); LEUKO ESTERASE Negative (Negative); MEAN CELL VOLUME 86.5 fl (81.0-99.0); MEAN CORPUSCULAR HGB 28.3 pg (27.0-31.0); MEAN PLATELET VOLUME 10.2 fl (9.6-12.3); MONO # 0.8 10*3/uL (0.1-1.0); MONO % 8.1 % (3.0-9.0); NEUT # 5.5 10*3/uL (2.3-7.9); NEUT % 55.9 % (47.0-73.0); NITRITE Negative (Negative); NUCLEATED RED BLOOD CELL 0.0 % (0.0-0.0); NUCLEATED RED BLOOD CELL 0.0 10*3/uL (0.0-0.0); PH 6.0 (4.5-8.0); PLATELET COUNT AUTOMATED 362 10*3/uL (130-400); RED CELL DISTRI WIDTH 13.0 % (0-14.5); RETICULOCYTE % 1.51 % (0.50-2.50); SPECIFIC GRAVITY 1.020 (1.001-1.030); UROBILINOGEN 0.2 E.U./dl (0.0-1.0)
[2024-12-09 13:04] LABS: BACTERIA 2+; EPITHELIAL CELLS 21-30
[2024-12-09 13:05] LABS: MUCOUS TRACE
[2024-12-09 13:34] LABS: BUN 8 mg/dl (9-23); GAMMA GLUTAMYL TRANSFERASE 11 U/L (0-38); LDL CHOLESTEROL 103 mg/dL (9-159); SGPT/ALT < 7 U/L (5-49); T3 UPTAKE 23.4 % (22.4-36.7); THYROXINE (T4) TOTAL 7.7 ug/dl (4.5-10.9); VITAMIN D, 25-HYDROXY 34.6 ng/mL (30-100)
== END | disposition home or self-care (01) ==
LOC: LAB 12:14
PROVIDERS: ATTEND Family Medicine
DX: E05.90 Thyrotoxicosis, unspecified without thyrotoxic crisis or storm (principal); R79.89 Other specified abnormal findings of blood chemistry; R78.5 Finding of other psychotropic drug in blood; R53.83 Other fatigue; E55.9 Vitamin D deficiency, unspecified